=== PATIENT | female | born 1985 | race Caucasian/White ===

== ENCOUNTER 2016-05-18 20:19 | Inpatient (IN) | payer OTHER ==
--- NOTE | ~2016-05-18 | CT107 ---
[facility] A Service of [facility] RADIOLOGY TEXT RESULTS PATIENT: MÓNICA KING LOCATION: [facility] 467-01 : 83 UNIT #: [id number] AGE: [address]: Emiliano Jeter SEX: F ORDER DR: [id number] [facility] [address]. [place], [place] [address] [id number] I MR#: [id number] Acc #: [id number] NAME: MÓNICA KING. : 1985 SEX: F STUDY DATE/TIME: 05/19/2016 11:16 UNIT: [facility] ROOM: [facility] STUDY DESCRIPTION: CT Pelvis Wo Cont Attending Physician: Emiliano Jeter M.D. Ordering Physician: Mariano German M.D. Primary Care Physician: Christiano Gold M.D. MEDICAL IMAGING REPORT This report is preliminary unless electronic signature is present STUDY Attempted abscess drainage. DATE OF STUDY 05/19/2016 INDICATION This patient was found to have an abscess within the right lower quadrant on the prior study from May 18, 2016. She has been referred for drainage. PROCEDURE The risks, benefits, and alternatives to the procedure were explained to the patient, and signed informed consent was obtained. She was placed supine on the CT scanner gantry and a preliminary CT scan was performed through the region of interest. TECHNIQUE NOTE: This CT exam was performed with one or more of the following radiation dose reduction techniques: automatic exposure control, adjustment of mA and/or kV according to patient size, and iterative reconstruction. FINDINGS On today's study, the collection appeared smaller now measuring about 4.8 x 5.6 cm, previously it measured up to 5.1 x 6.7 cm. In addition, there is now overlying bowel which precludes drain placement. The procedure was subsequently terminated. Patient did receive conscious sedation consisting of 2 mg of Versed and 50 mcg of fentanyl and continuous monitoring was provided throughout the procedure. [facility] A Service [facility] RADIOLOGY TEXT RESULTS PATIENT: MÓNICA KING LOCATION: [facility] 467-01 : 83 UNIT #: [id number] AGE: [address]: Emiliano Jeter SEX: F ORDER DR: IMPRESSION The patient now has of bowel overlying the patient's abscess which precludes drain placement. In addition, the collection appears smaller on today's study at 5.6 x 4.8 cm, previously 6.7 x 5.1 cm. Dictated by... Marixa Cooper M.D. THIS IS AN ELECTRONICALLY VERIFIED REPORT Marixa Cooper M.D. at 05/20/2016 8:03 PM NICKY/catalino TD: 05/19/2016 21:45 JOB #: [id number] MEDICAL IMAGING REPORT COPY
--- NOTE | ~2016-05-18 | CO ---
Unit #: [id number] #: [id number] Patient: MÓNICA KING [id number] [address] [place], [place] [address] [id number] I MR#: [id number] NAME: MÓNICA KING ROOM: 467 Age: 31 Sex: F Admission Date: 05/18/2016 : 1985 Attending Physician: Emiliano Jeter M.D. Primary Care Physician: Christiano Gold M.D. Consultation Date: 05/19/2016 CONSULTATION REPORT HISTORY OF PRESENT ILLNESS Ms. Salo Thompson is a 31-year-old female who stated that she woke up with abdominal pain on Monday and developed fever as high as 102. She went to a [facility] and was diagnosed with possible flu but, over the next 24 to 36 hours, she had progressive abdominal pain, associated nausea and vomiting. She denied any diarrhea or dysuria. She came to the emergency room last evening and, on CT scan, she had an abscess in the right lower quadrant consistent with a perforated appendicitis. She was admitted on IV antibiotics. This morning she is afebrile but she has localized tenderness with rebound in the right lower quadrant extending into the suprapubic area. PAST MEDICAL HISTORY She has a history of anxiety, depression and panic attacks, history of diverticular disease. She has had a cholecystectomy and a right ovarian cystectomy. She has had a previous tonsillectomy and adenoidectomy. SOCIAL HISTORY She states she drinks a lot of wine every day but she does not smoke and does not use any recreational drugs. She is not currently working as she just graduated from college. She is and the is at the bedside. FAMILY HISTORY She and her mother are unaware of any chronic or inheritable diseases. ALLERGIES Bupropion from Wellbutrin and Reglan. CURRENT MEDICATIONS 1. Effexor 75 mg daily. 2. Vistaril 25 mg q.12. 3. Klonopin 0.5 mg at h.s. REVIEW OF SYSTEMS No hematemesis, hematochezia or melena. No weight loss. Fever but no shaking chills. No diarrhea. No dysuria. She does not have a productive cough. PHYSICAL EXAMINATION GENERAL APPEARANCE: She is awake, alert and oriented. She is tearful but cooperative. VITAL SIGNS: Temperature 98.9. Pulse 94. Respirations 18. Blood pressure 117/84. Unit #: [id number] #: [id number] Patient: MÓNICA KING HEENT: No scleral icterus. No carotid bruits. CARDIAC: Regular rate and rhythm without murmur. LUNGS: Clear. ABDOMEN: She has guarding and mild rebound in the right lower quadrant extending to the suprapubic area. She does not have diffuse peritonitis. EXTREMITIES: No edema. NEUROLOGIC: Grossly intact. No skin rashes or lesions. DIAGNOSTIC STUDIES LABORATORY: Comprehensive metabolic panel is normal except for potassium of 3.0. White count 16,700, hemoglobin 13.8, platelets 237,000. Urinalysis is negative for infection. IMAGING: CT scan shows a 6.7 cm abscess in the right lower quadrant abutting the cecum. No appendix is identified. She has a 3.5 cm left ovarian cyst and, in the pancreatic head, she has a hypodense lesion that is probably a cyst but followup evaluation with x-ray was recommended. ASSESSMENT AND PLAN Perforated appendicitis. The patient has been admitted and started on IV antibiotics. I plan on doing a CT-guided drainage of the abscess and continuation of antibiotics. Once the acute inflammation and infection has resolved, we will do an interval appendectomy laparoscopically. I have discussed this at length with the patient and her family. They understand and agree to proceed. Dictated by... Lashae Forrest/lakshmi TD: 05/19/2016 07:31 JOB #: [id number] CONSULTATION REPORT X Mariano German MD CONSULTATION REPORT
--- NOTE | ~2016-05-18 | DS ---
Unit #: [id number] #: [id number] Patient: MÓNICA KING [id number] [address] [address] [id number] I MR#: [id number] NAME: MÓNICA KING. ROOM: 467 Age: 31 Sex: F Admission Date: 05/18/2016 : 1985 Discharge Date: 05/22/2016 Attending Physician: Emiliano Jeter M.D. Primary Care Physician: Christiano Gold M.D. DISCHARGE SUMMARY ADMITTING AND FINAL DIAGNOSIS Perforated appendicitis. OPERATIONS ON THIS ADMISSION None. BRIEF SUMMARY The patient is a 31-year-old white female who presented with evidence of right lower quadrant abdominal pain with perforation of the appendix on CT. She also had a small abscess approximately 5 cm in diameter. This was all localized, and she was not toxic on admission. Her physical examination on admission revealed tenderness in the right lower quadrant; otherwise, was fairly unremarkable. There was no evidence of any peritonitis. White blood cell count was elevated. HOSPITAL COURSE The patient was admitted, started on IV antibiotics and seen by Dr. German. He felt the patient, in view of the fact she was not toxic and had localized inflammation with a small abscess, she could be treated with IV antibiotics and subsequently oral antibiotics at home and have an interval appendectomy in approximately 2 months. She is very happy with this approach and presently is feeling well, tolerating p.o. liquids. Plan will be to discharge the patient home in satisfactory condition. She is afebrile. Last white blood cell count was 16,000. She will be on oral antibiotics and oral pain medications and be on routine normal activity, regular diet, and will call the office for an appointment in approximately a week and a half to [address] German. If she becomes very ill with shaking chills or evidence of any toxicity from this, she will be calling us immediately. Dictated by... Dwayne Muller Jr., M.D. WILLIAM/mert TD: 05/23/2016 08:23 JOB #: [id number] Unit #: [id number] #: [id number] Patient: MÓNICA KING DISCHARGE SUMMARY X Dwayne Muller MD DISCHARGE SUMMARY
--- NOTE | ~2016-05-18 | CT2 ---
[facility] A Service of [facility] RADIOLOGY TEXT RESULTS PATIENT: MÓNICA KING LOCATION: [place] [address] : 83 UNIT #: [id number] AGE: [address]: Emiliano Jeter SEX: F ORDER DR: [id number] [address] [address] [id number] E MR#: [id number] Acc #: [id number] NAME: MÓNICA KING : 1985 SEX: F STUDY DATE/TIME: 05/18/2016 UNIT: SED ROOM: STUDY DESCRIPTION: CT Abd and Pelv W Cont Attending Physician: Duyen Bustillo Pa-C Ordering Physician: Physician Non-Staff Primary Care Physician: Christiano Gold M.D. MEDICAL IMAGING REPORT This report is preliminary unless electronic signature is present. EXAM CT abdomen and pelvis 05/18/16 at 21:59 hours INDICATIONS Lower abdominal pain with nausea and constipation that started yesterday. History of diverticulitis. Pain is 11/03. TECHNIQUE This CT exam was performed with one or more of the following radiation dose reduction techniques: automatic exposure control, adjustment of mA and/or kV according to patient size, and iterative reconstruction. Axial images were obtained through the abdomen and pelvis following oral and IV contrast administration. Multiplanar reformats were obtained. Comparison made with 09/02/2013. FINDINGS Abdomen: Lung bases are clear. Gallbladder is surgically absent. No biliary obstruction. There is a potential hypodense mass in the head and uncinate process of the pancreas. It measures about 2.6 x 1.9 x 3.3 cm in size. Nonemergent evaluation with pancreas protocol MRI is recommended with and without contrast. The rest of the pancreas is normal. There is no pancreatic ductal dilatation. Solid organs are otherwise normal. The GI tract in the abdomen is normal. The no adenopathy is seen. Pelvis: Urinary bladder is normal. Uterus is normal. There is a left ovarian cyst measuring 3.5 cm. There is an abscess in the right anterior pelvis immediately adjacent to the tip of the cecum. It is also adjacent to the mid sigmoid colon. This could certainly reflect an abscess from ruptured acute appendicitis. The abnormality measures about 5.1 x 6.7 x 5.6 cm. The adjacent terminal ileum is grossly normal. A normal appendix is not clearly identified. There is some fat stranding that surrounds the STS. [facility] A Service of [facility] RADIOLOGY TEXT RESULTS PATIENT: MÓNICA KING LOCATION: [place] [address] : 83 UNIT #: [id number] AGE: [address]: Emiliano Jeter SEX: F ORDER DR: adjacent sigmoid colon. It is possible that this is a diverticular abscess, but this is felt to be much less likely. No bowel obstruction is seen at this time. IMPRESSION 1. There is a hypodense lesion in the head and uncinate process of the pancreas. This is nonspecific. It is not causing biliary or pancreatic ductal dilatation. Nonemergent followup with pancreas protocol MRI with without contrast is recommended. 2. There is a large abscess in the right lower quadrant measuring up to 6.7 cm in greatest dimension. This directly abuts the tip of the cecum. This may be an abscess from a ruptured acute appendicitis as there is no normal appendix identified. There is fat stranding that surrounds the midsigmoid colon. This is felt to be a reactive fat stranding. A large diverticular abscess is felt to be much less likely. 3. There is a 3.5 cm left ovarian cyst. STAT * RESULT Dictated by... Mariano St Jr., M.D. THIS IS AN ELECTRONICALLY VERIFIED REPORT Mariano St Jr., M.D. at 05/19/2016 5:27 AM PHIL/drew TD: 05/18/2016 22:47 JOB #: [id number] MEDICAL IMAGING REPORT
--- NOTE | ~2016-05-18 | CT4 ---
[facility] A Service of [facility] RADIOLOGY TEXT RESULTS PATIENT: MÓNICA KING LOCATION: [facility] 46- : 83 UNIT #: [id number] AGE: [address]: Emiliano Jeter SEX: F ORDER DR: [id number] [facility] [address] [place], [place] [address] [id number] I MR#: [id number] Acc #: [id number] NAME: MÓNICA KING : 1985 SEX: F STUDY DATE/TIME: 05/21/2016 9:49 UNIT: [facility] ROOM: [facility] STUDY DESCRIPTION: CT Abd and Pelv Wo Cont Attending Physician: Emiliano Jeter M.D. Ordering Physician: Mariano German M.D. Primary Care Physician: Christiano Gold M.D. MEDICAL IMAGING REPORT This report is preliminary unless electronic signature is present EXAM CT abdomen and pelvis, noncontrast, 05/21/2016. HISTORY 31-year-old female with recent studies showing a right side pelvic abscess abutting the cecum and nonvisualization of the appendix. Concern for acute appendicitis. CT for followup of abscess. TECHNIQUE CT examination of the abdomen and pelvis was performed without IV contrast. GI contrast material was administered. This CT exam was performed with one or more of the following radiation dose reduction techniques: automatic exposure control, adjustment of mA and/or kV according to patient size, and iterative reconstruction. COMPARISON CT abdomen/pelvis 05/18/2016. CT pelvis 05/19/2016. FINDINGS Abdomen: Cholecystectomy. No bile duct dilatation. Liver, pancreas, spleen and kidneys are normal in appearance without contrast. Small bowel and colon are normal in caliber and appearance within the abdomen. Pelvis: There is a thick-walled abscess abutting the posterior margin of the cecum in the right mid pelvis measuring about 5.7 x 5 cm. This is unchanged since yesterday. No normal appendix is identified. The findings are highly suggestive of perforated acute appendicitis with abscess. Uterus and both ovaries appear normal. The sigmoid colon wall is mildly thickened near the right side pelvic abscess, but this is likely secondary inflammation. There is no significant diverticulosis. The rectum is STS. [facility] A Service of [facility] RADIOLOGY TEXT RESULTS PATIENT: MÓNICA KING LOCATION: [facility] 467-01 : 83 UNIT #: [id number] AGE: [address]: Emiliano Jeter SEX: F ORDER DR: negative. No inguinal hernia. Lung bases are clear. IMPRESSION 1. CT findings remain concerning for perforated acute appendicitis with an adjacent pericecal abscess measuring up to 5.7 cm in size. This is unchanged since yesterday. 2. Uterus and both ovaries appear normal. 3. Mild inflammation of the sigmoid colon near the right side pelvic abscess. This is likely secondary inflammation. There is no diverticulosis. No evidence of bowel obstruction. Dictated by... Ollie Pereira M.D. THIS IS AN ELECTRONICALLY VERIFIED REPORT Ollie Pereira M.D. at 05/21/2016 3:01 PM Talat TD: 05/21/2016 13:13 JOB #: [id number] MEDICAL IMAGING REPORT COPY
[~2016-05-18 20:19] MED LIST: ALPRAZOLAM PO; ATIVAN PO; CIPRO PO; DEPAKOTE250 MG PO; DESYREL50 MG PO; DOXEPIN HCL50 MG PO; EFFEXOR XR75 MG PO; IBUPROFEN PO; KLONOPIN PO; LOMOTIL TABLET1 TAB PO; NUVARING V1 VAG.RING VG; PHENERGAN PO; PHENERGAN SUPP25 MG PR; PHENERGAN25 MG PO; PROZAC PO; REGLAN PO; SEROQUEL PO; VICODIN 5/500 T1 TAB PO; VISTARIL PO; ZOFRAN PO; ZOLOFT PO; [UNRECOGNIZED DRUG - OTHER] PO
[2016-05-18 20:28] LABS: URINE SOURCE CLEAN CATCH
[2016-05-18 20:31] LABS: URINE APPEARANCE CLEAR; URINE BILIRUBIN NEG (NEG); URINE BLOOD 2+ (NEG); URINE COLOR YELLOW; URINE GLUCOSE NEG (NORM); URINE KETONE TRACE (NEG); URINE LEUKOCYTE ESTERASE NEG (NEG); URINE NITRATE NEG (NEG); URINE PROTEIN NEG (NEG); URINE SPECIFIC GRAVITY <=1.005 (1.003-1.035); URINE UROBILINOGEN 0.2 MG/DL (NORM)
[2016-05-18 20:32] LABS: MICRO INDICATED? YES
[2016-05-18 20:45] LABS: CULTURE INDICATED? NO; URINE BACTERIA NEG (NEG); URINE SQUAMOUS EPITHELIAL CELL MODERATE /[HPF]
[2016-05-18 20:51] LABS: BASOPHIL% 0.2 % (0-2.5); DIFF IND NO; EOSINOPHIL# 0.1 X10e3 (0-0.7); EOSINOPHIL% 0.5 % (0.0-7.0); HEMATOCRIT 40.7 % (35.0-45.0); HEMOGLOBIN 13.8 gm/dL (12.0-16.0); LYMPHOCYTE# 1.1 X10e3 (1.0-3.5); LYMPHOCYTE% 6.8 % (17.0-45.0); MEAN CELL VOLUME 93.3 FL (83-96); MEAN CORPUSCULAR HEMOGLOBIN 31.6 PG (28-34); MEAN CORPUSCULAR HGB CONC 33.9 g/dL (30-36); MEAN PLATELET VOLUME 7.1 FL (6.5-11.5); MONOCYTE# 1.4 X10e3 (0-1.0); MONOCYTE% 8.4 % (3.0-12.0); NEUTROPHIL% 84.1 % (40-75); PLATELET COUNT 237 X10e3 (140-420); RED BLOOD COUNT 4.36 X10e (3.90-5.30); RED CELL DISTRIBUTION WIDTH 14.8 % (11.0-15.5); WHITE BLOOD COUNT 16.7 X10e3 (4.0-10.5)
[2016-05-18 21:01] LABS: ALBUMIN SERUM 4.2 g/dL (3.5-5.0); ALKALINE PHOSPHATASE 59 U/L (32-92); ALT (SGPT) 14 U/L (10-40); AMYLASE 9 U/L (0-46); AST (SGOT) 17 U/L (10-42); BILIRUBIN, DIRECT 0.3 mg/dL (0.0-0.2); BILIRUBIN,TOTAL 1.3 mg/dL (0.2-2.0); BLOOD UREA NITROGEN 10 mg/dL (9-23); CALCIUM SERUM 8.9 mg/dL (8.4-10.2); CARBON DIOXIDE 24 mmol/L (22-31); CHLORIDE 98 mmol/L (100-111); CREATININE SERUM 0.8 mg/dL (0.6-1.4); GLOM FILT RATE Estimated ABOVE60 mL/min (>60); GLUCOSE FASTING 126 mg/dL (70-110); LIPASE 20 U/L (22-51); POTASSIUM 3.3 mmol/L (3.5-5.1); PROTEIN TOTAL SERUM 7.1 g/dL (6.0-8.3); SODIUM 131 mmol/L (135-145)
[2016-05-19 05:44] LABS: BASOPHIL# 0.1 X10e3 (0-0.3); BASOPHIL% 0.4 % (0-2.5); EOSINOPHIL# 0.1 X10e3 (0-0.7); EOSINOPHIL% 0.7 % (0.0-7.0); HEMATOCRIT 35.8 % (35.0-45.0); HEMOGLOBIN 12.4 gm/dL (12.0-16.0); LYMPHOCYTE# 1.1 X10e3 (1.0-3.5); LYMPHOCYTE% 9.2 % (17.0-45.0); MEAN CELL VOLUME 93.9 FL (83-96); MEAN CORPUSCULAR HEMOGLOBIN 32.6 PG (28-34); MEAN CORPUSCULAR HGB CONC 34.8 g/dL (30-36); MEAN PLATELET VOLUME 6.8 FL (6.5-11.5); MONOCYTE# 0.9 X10e3 (0-1.0); MONOCYTE% 7.4 % (3.0-12.0); NEUTROPHIL# 10.3 X10e3 (1.5-7.1); NEUTROPHIL% 82.3 % (40-75); PLATELET COUNT 202 X10e3 (140-420); RED BLOOD COUNT 3.82 X10e (3.90-5.30); RED CELL DISTRIBUTION WIDTH 14.9 % (11.0-15.5); WHITE BLOOD COUNT 12.5 X10e3 (4.0-10.5)
[2016-05-19 05:53] LABS: DIFF IND NO
[2016-05-19 06:57] LABS: BLOOD UREA NITROGEN 8 mg/dL (9-23); BUN/CREATININE RATIO 8.88; CALCIUM SERUM 8.5 mg/dL (8.4-10.2); CARBON DIOXIDE 25 mmol/L (22-31); CHLORIDE 104 mmol/L (100-111); CREATININE SERUM 0.9 mg/dL (0.6-1.4); GLOM FILT RATE Estimated ABOVE60 mL/min (>60); GLUCOSE FASTING 122 mg/dL (70-110); SODIUM 139 mmol/L (135-145)
[2016-05-19 09:14] LABS: PARTIAL THROMBOPLASTIN TIME 29.6 SECONDS (23.5-31.3); PROTHROMBIN TIME (PATIENT) 10.4 SECONDS (9.6-11.5)
[2016-05-20 04:08] LABS: HEMOGLOBIN 11.5 gm/dL (12.0-16.0); MEAN CELL VOLUME 93.4 FL (83-96); MEAN CORPUSCULAR HEMOGLOBIN 31.5 PG (28-34); MEAN CORPUSCULAR HGB CONC 33.8 g/dL (30-36); RED BLOOD COUNT 3.64 X10e (3.90-5.30); RED CELL DISTRIBUTION WIDTH 14.6 % (11.0-15.5); WHITE BLOOD COUNT 11.1 X10e3 (4.0-10.5)
[2016-05-20 04:37] LABS: CALCIUM SERUM 8.2 mg/dL (8.4-10.2); CARBON DIOXIDE 24 mmol/L (22-31); CHLORIDE 108 mmol/L (100-111); CREATININE SERUM 0.9 mg/dL (0.6-1.4); GLOM FILT RATE Estimated ABOVE60 mL/min (>60); GLUCOSE FASTING 117 mg/dL (70-110); MAGNESIUM 1.8 mg/dL (1.6-3.0); SODIUM 138 mmol/L (135-145)
[2016-05-20 04:38] LABS: BLOOD UREA NITROGEN <5 mg/dL (9-23); BUN/CREATININE RATIO 5.55
[2016-05-21 03:20] LABS: HEMATOCRIT 33.2 % (35.0-45.0); HEMOGLOBIN 11.6 gm/dL (12.0-16.0); MEAN CELL VOLUME 94.2 FL (83-96); MEAN CORPUSCULAR HGB CONC 35.1 g/dL (30-36); MEAN PLATELET VOLUME 7.2 FL (6.5-11.5); RED BLOOD COUNT 3.53 X10e (3.90-5.30); RED CELL DISTRIBUTION WIDTH 14.7 % (11.0-15.5); WHITE BLOOD COUNT 8.9 X10e3 (4.0-10.5)
[2016-05-22] MEDS ORDERED: AUGMENTIN875 M1 PO (07:25)
[2016-05-22] MEDS ORDERED: FLAGYL PO (07:26)
[2016-05-22] MEDS ORDERED: NORCO 10/3251 TAB PO (07:27)
[2016-07-01] MEDS ORDERED: ALEVE220 M1 PO (12:22)
== END 2016-05-22 08:20 | disposition home or self-care (01) | DRG 373 ==
LOC: SED 20:19 → C4C 23:11
PROVIDERS: Physician Assistant; Radiology Diagnostic Radiology; Specialist; Surgery
PROC: BW21ZZZ Computerized Tomography (CT Scan) of Abdomen and Pelvis (ICD-10-PCS; principal; 2016-05-19)
DX: K35.3 Acute appendicitis with localized peritonitis (principal); F32.9 Major depressive disorder, single episode, unspecified; F41.9 Anxiety disorder, unspecified; F41.0 Panic disorder [episodic paroxysmal anxiety]; Z90.49 Acquired absence of other specified parts of digestive tract; N83.202 Unspecified ovarian cyst, left side
CPT/HCPCS: 36415; 72192; 74176; 74177; 76140; 80048; 80076; 81003; 82150; 83690; 83735; 84443; 84703; 85025; 85027; 85610; 85730; 96374; 96375; 99291; C9113; J1650; J2250; J2270; J2405; J2543; J3010; Q9967

== ENCOUNTER → 2016-07-01 | Outpatient (CLI) | payer OTHER ==
[~2016-07-01] MED LIST changes: +ALEVE220 M1 PO; +AUGMENTIN875 M1 PO; +FLAGYL PO; +HYDROCODON-ACE1 EA14 PO; +HYDROCODON-ACE1 EAC5 PO; +NORCO 10/3251 TAB PO
[2016-07-01 12:55] LABS: HEMATOCRIT 42.9 % (35.0-45.0); HEMOGLOBIN 14.5 gm/dL (12.0-16.0); MEAN CELL VOLUME 90.4 FL (83-96); MEAN CORPUSCULAR HEMOGLOBIN 30.5 PG (28-34); MEAN CORPUSCULAR HGB CONC 33.7 g/dL (30-36); MEAN PLATELET VOLUME 7.3 FL (6.5-11.5); RED BLOOD COUNT 4.75 X10e (3.90-5.30); RED CELL DISTRIBUTION WIDTH 13.4 % (11.0-15.5); WHITE BLOOD COUNT 8.2 X10e3 (4.0-10.5)
== END | disposition home or self-care (01) ==
LOC: CAMB 11:48
PROVIDERS: Surgery
DX: Z01.812 Encounter for preprocedural laboratory examination (principal); K35.2 Acute appendicitis with generalized peritonitis
CPT/HCPCS: 36415; 85027

== ENCOUNTER 2016-07-08 07:03 | Observation (INO) | payer OTHER ==
--- NOTE | ~2016-07-08 | OR ---
Unit #: [id number] #: [id number] Patient: MÓNICA KING [id number] [address] [place], [place] [address] [id number] MR#: [id number] NAME: MÓNICA KING ROOM: [facility] Date of Procedure: 07/08/2016 Admission Date: 07/08/2016 Surgeon: Dwayne Muller Jr., M.D. : 1985 Attending Physician: Dwayne Muller Jr., M.D. Primary Care Physician: Christiano Gold M.D. OPERATIVE REPORT INDICATION FOR PROCEDURE The patient is a 31-year-old white female, who is approximately 2-1/2 months status post perforated appendicitis. She was not toxic and well walled off and it was decided that an interval appendectomy be performed. She finished a full course of antibiotics and completely became asymptomatic and was seen recently in the office desiring interval appendectomy. She is brought in this time for this procedure. She understands the procedure including the risks and consents. PREOPERATIVE DIAGNOSES Chronic appendicitis with previous perforation. POSTOPERATIVE DIAGNOSES Chronic appendicitis with previous perforation, noting multiple intra-abdominal adhesions in the right lower quadrant. ANESTHESIA General with endotracheal intubation and 0.5% Marcaine with epinephrine locally in the port sites. ASSISTANT Stiven Young M.D. PROCEDURES PERFORMED Laparoscopic lysis of adhesions with laparoscopic appendectomy. DESCRIPTION OF PROCEDURE The patient was positioned in supine position. After being anesthetized and intubated, she was prepped and draped in routine fashion for laparoscopic appendectomy. A small 0.5 cm incision was made below the umbilicus. The umbilicus and peritoneum were then lifted with a towel clip and a Veress needle introduced into the abdomen. The abdomen was then inflated with CO2 gas. A 5-mm port was introduced in the abdomen followed by the camera. There was no evidence of any injury related to introduction of the port of the Veress needle. Additional 5-mm port was placed shelter between the umbilicus and suprapubic area and the right lower quadrant checked. There was a short appendiceal stump with no obvious tip present. A 12 mm port was placed just to the right of the upper midline and the cecum was then mobilized with multiple adhesions being taken down with hook scissors and the hook cautery. After this was complete, the entire area was checked. There was no evidence of anything more than the appendiceal stump and the short segment of the appendix. A Unit #: [id number] #: [id number] Patient: MÓNICA KING window was created at the base of the appendix and using the linear stapler using 3.5 mm enedelia with 2 separate staple cartridges, the appendix and a small portion of the cecum were then stapled and secured. The mesoappendix was then stapled and secured with a vascular load and the appendix as identified was placed in the EndoCatch bag and brought out through the larger port site. The port was replaced. The right lower quadrant checked. There was some oozing from the staple lines and these were controlled with stainless-steel skin clips. After hemostasis was totally adequate, several sponges were placed down in the pelvic area and the right lower quadrant used to absorb some fluid in this area. After this was complete, the right lower quadrant was again checked and there was no evidence of any bleeding at all from the staple lines. The appendix was placed in EndoCatch bag as noted above and brought out and sent to pathology. The CO2 was expressed from the abdomen. The port sites were injected with 0.5% Marcaine with epinephrine locally. The fascia in the larger port site was approximated with the neoClose technique. CO2 was expressed from the abdomen. After the port sites were injected, the wounds were irrigated and after hemostasis achieved with Bovie cautery, skin edges were approximated with stainless-steel skin clips and skin stapling device. Sterile dressings were applied externally. Estimated blood loss less than 50 mL. The patient received less than 1000 mL crystalloid solution during the procedure. Sponges and instruments counts were correct x3. No drains used. No complications. The patient was taken to the recovery room with stable vital signs in satisfactory condition. Dictated by... Dwayne Muller Jr., M.D. JMB/malvin TD: 07/08/2016 22:54 JOB #: [id number] OPERATIVE REPORT Page 1 of 1 X Dwayne Muller MD X PROCEDURE OPERATIVE NOTE
[~2016-07-08 07:03] MED LIST changes: -HYDROCODON-ACE1 EA14 PO; -HYDROCODON-ACE1 EAC5 PO
[2016-07-09 02:56] LABS: HEMATOCRIT 37.3 % (35.0-45.0); HEMOGLOBIN 12.4 gm/dL (12.0-16.0); MEAN CELL VOLUME 90.3 FL (83-96); MEAN CORPUSCULAR HGB CONC 33.3 g/dL (30-36); MEAN PLATELET VOLUME 7.6 FL (6.5-11.5); RED BLOOD COUNT 4.13 X10e (3.90-5.30); RED CELL DISTRIBUTION WIDTH 12.9 % (11.0-15.5); WHITE BLOOD COUNT 13.1 X10e3 (4.0-10.5)
[2016-07-09] MEDS ORDERED: HYDROCODON-ACE1 EA14 PO (07:32)
[2016-07-09] MEDS ORDERED: HYDROCODON-ACE1 EAC5 PO (07:41)
== END 2016-07-09 08:05 | disposition home or self-care (01) | DRG 395 ==
LOC: CSUR 07:03 → CPACUOF 09:11 → C4C 12:00
PROVIDERS: Surgery
DX: K36 Other appendicitis (principal); K66.0 Peritoneal adhesions (postprocedural) (postinfection); N80.5 Endometriosis of intestine; F41.8 Other specified anxiety disorders; Z87.891 Personal history of nicotine dependence
CPT/HCPCS: 85027; 88304; 96374; 96375; 96376; G0378; J0330; J1170; J1650; J1885; J2175; J2250; J2270; J2405; J2543; J3010

== ENCOUNTER 2016-09-17 06:24 | Emergency (ER) | payer OTHER ==
[~2016-09-17 06:24] MED LIST changes: +HYDROCODON-ACE1 EA14 PO; +HYDROCODON-ACE1 EAC5 PO
== END 2016-09-17 08:05 | disposition home or self-care (01) ==
LOC: SED 06:24
DX: F41.0 Panic disorder [episodic paroxysmal anxiety] (principal); F17.200 Nicotine dependence, unspecified, uncomplicated; Z79.899 Other long term (current) drug therapy; Z88.8 Allergy status to other drugs, medicaments and biological substances
CPT/HCPCS: 36415; 96361; 96374; 96375; 99283; J2060; J2550

== ENCOUNTER 2016-10-21 18:02 | Emergency (ER) | payer OTHER ==
[~2016-10-21] VITALS: Ht 180.3 cm; Wt 83.9 kg
--- NOTE | ~2016-10-21 | CR63 ---
[facility] A Service of [facility] & [facility] RADIOLOGY TEXT RESULTS PATIENT: MÓNICA KING LOCATION: SED : [birth year] UNIT #: [id number] AGE: [address]: Edwin Garrett MD SEX: F ORDER DR: [id number] [address] [address] [id number] E MR#: [id number] Acc #: [id number] NAME: MÓNICA KING : 1985 SEX: F STUDY DATE/TIME: 10/21/2016 20:20 UNIT: SED ROOM: STUDY DESCRIPTION: CR Chest 2 View Attending Physician: Edwin Garrett M.D. Ordering Physician: Dieudonne Scott M.D. Primary Care Physician: Christiano Gold M.D. MEDICAL IMAGING REPORT This report is preliminary unless electronic signature is present. EXAM 2 views chest. HISTORY Short of air. 3 days duration. Panic attack. TECHNIQUE PA and lateral radiographs the chest are presented. COMPARISON 10/07/2009. FINDINGS Heart and mediastinum normal in size and contour. Lungs are well inflated. No acute pulmonary disease, pleural effusion or pneumothorax. No suspicious nodule. Bony structures unremarkable. Surgical clips in the upper abdomen. Dictated by... Nba Chaves M.D. THIS IS AN ELECTRONICALLY VERIFIED REPORT Nba Chaves M.D. at 10/22/2016 2:37 PM ELENK/pam TD: 10/22/2016 12:45 JOB #: [id number] MEDICAL IMAGING REPORT Page 1 of 1
--- NOTE | ~2016-10-21 | EKG ---
PATIENT: MÓNICA KING UNIT #: [id number] Ventricular Rate: 95 BPM Atrial Rate: 95 BPM P-R Interval: 128 ms QRS Duration: 68 ms Q-T Interval: 364 ms QTC Calculation(Bezet): 457 ms P [place]: 41 degrees Calculated R [place]: 61 degrees Calculated T [place]: 28 degrees Diagnosis Line: Normal sinus rhythm with sinus arrhythmia Diagnosis Line: Nonspecific T wave abnormality Diagnosis Line: Abnormal ECG Diagnosis Line: Diagnosis Line: Confirmed by MINDY QUINTANILLA MD ([id number]) on Diagnosis Line: 10/24/2016 3:24:00 PM INTERPRETING MD: SOCORRO HOGAN
[2016-10-21 19:42] LABS: BASOPHIL# 0.1 X10e3 (0-0.3); BASOPHIL% 0.6 % (0-2.5); EOSINOPHIL% 0.3 % (0.0-7.0); HEMATOCRIT 45.7 % (35.0-45.0); HEMOGLOBIN 15.8 gm/dL (12.0-16.0); LYMPHOCYTE# 1.1 X10e3 (1.0-3.5); LYMPHOCYTE% 12.2 % (17.0-45.0); MEAN CELL VOLUME 90.9 FL (83-96); MEAN CORPUSCULAR HEMOGLOBIN 31.4 PG (28-34); MEAN CORPUSCULAR HGB CONC 34.6 g/dL (30-36); MEAN PLATELET VOLUME 6.8 FL (6.5-11.5); MONOCYTE# 0.5 X10e3 (0-1.0); MONOCYTE% 5.4 % (3.0-12.0); NEUTROPHIL# 7.7 X10e3 (1.5-7.1); NEUTROPHIL% 81.5 % (40-75); PLATELET COUNT 215 X10e3 (140-420); RED BLOOD COUNT 5.03 X10e (3.90-5.30); RED CELL DISTRIBUTION WIDTH 14.3 % (11.0-15.5); URINE SOURCE CLEAN CATCH; WHITE BLOOD COUNT 9.4 X10e3 (4.0-10.5)
[2016-10-21 19:45] LABS: DIFF IND NO
[2016-10-21 19:46] LABS: URINE APPEARANCE CLEAR; URINE BILIRUBIN NEG (NEG); URINE BLOOD NEG (NEG); URINE COLOR YELLOW; URINE GLUCOSE NEG (NORM); URINE KETONE 1+ (NEG); URINE LEUKOCYTE ESTERASE NEG (NEG); URINE NITRATE NEG (NEG); URINE PH 6.5 (5-8); URINE PROTEIN NEG (NEG); URINE UROBILINOGEN 0.2 MG/DL (NORM)
[2016-10-21 19:47] LABS: MICRO INDICATED? NO
[2016-10-21 19:55] LABS: AMPHETAMINE NEG (NEG); BARBITURATES NEG (NEG); BENZODIAZEPINES POS (NEG); COCAINE NEG (NEG); MARIJUANA NEG (NEG); OPIATES NEG (NEG); TRICYCLIC ANTIDEPRESSANTS NEG (NEG); U METHADONE NEG (NEG)
[2016-10-21 20:00] LABS: ACETAMINOPHEN <10 ug/mL; ALBUMIN SERUM 4.6 g/dL (3.5-5.0); ALCOHOL BLOOD <5 mg/dL (0); ALKALINE PHOSPHATASE 53 U/L (32-92); ALT (SGPT) 28 U/L (10-40); AST (SGOT) 26 U/L (10-42); BILIRUBIN, DIRECT 0.1 mg/dL (0.0-0.2); BILIRUBIN,INDIRECT 0.7 mg/dL (0.0-0.9); BILIRUBIN,TOTAL 0.8 mg/dL (0.2-2.0); BLOOD UREA NITROGEN 14 mg/dL (9-23); BUN/CREATININE RATIO 12.72; CALCIUM SERUM 9.1 mg/dL (8.4-10.2); CARBON DIOXIDE 27 mmol/L (22-31); CHLORIDE 103 mmol/L (100-111); CREATININE SERUM 1.1 mg/dL (0.6-1.4); GLOM FILT RATE Estimated 65.9 mL/min (>60); GLUCOSE FASTING 107 mg/dL (70-110); POTASSIUM 3.8 mmol/L (3.5-5.1); PROTEIN TOTAL SERUM 7.8 g/dL (6.0-8.3); SALICYLATE <4.0 mg/dL; SODIUM 139 mmol/L (135-145)
== END 2016-10-21 21:50 | disposition home or self-care (01) ==
LOC: SED 18:02
PROVIDERS: Emergency Medicine
DX: F10.10 Alcohol abuse, uncomplicated (principal); Z79.899 Other long term (current) drug therapy; Z88.8 Allergy status to other drugs, medicaments and biological substances
CPT/HCPCS: 36415; 71020; 80048; 80076; 80307; 81003; 84703; 85025; 93005; 96365; 96366; 96375; 99284; G0480; J2060; J2405; J3411; J3475